=== PATIENT | male | born 1960 | race Caucasian/White ===

== ENCOUNTER 2020-09-04 16:05 | Inpatient (IN) | payer OTHER ==
[2020-09-04 16:53] LABS: BASO % 0.5 % (0-2.0); EOS % 0.3 % (0-4.5); HEMATOCRIT 37.4 % (35.4-49); HEMOGLOBIN 12.9 GM/dL (11.7-16.9); LYMPH % 36.3 % (8-40); MCH 30.9 pg (25.7-33.7); MCHC 34.5 g/dl (32.0-35.9); MEAN CELL VOLUME 89.6 fl (80-96); MEAN PLT VOLUME 8.4 fl (7.5-11.1); NEUT % 57.9 % (42.8-82.8); PLATELET COUNT 57 K/MM3 (134-434); RBC 4.17 M/mm3 (4.00-5.60); RDW 15.5 % (11.9-15.9); WHITE BLOOD COUNT 3.6 K/mm3 (4.0-10.0)
[2020-09-04 17:13] LABS: CHLORIDE 105 mmol/L (98-107); SODIUM 139 mmol/L (136-145); VENOUS BASE EXCESS -0.4 mmol/L (-2-2); VENOUS O2 SATURATION 90.3 % (70-80); VENOUS PCO2 47.2 mmHg (38-52); VENOUS PH 7.352 (7.310-7.410)
[2020-09-04 17:15] LABS: CALCIUM 8.3 mg/dL (8.5-10.1)
[2020-09-04 17:16] LABS: ALBUMIN 4.6 g/dl (3.4-5.0); ANION GAP 4 MMOL/L (8-16); BLOOD UREA NITROGEN 21.4 mg/dL (7-18); CO2 30 mmol/L (21-32); GLUCOSE,RANDOM 161 mg/dL (74-106)
[2020-09-04 17:19] LABS: SGOT/AST 25 U/L (15-37); SGPT/ALT 28 U/L (13-61)
[2020-09-04 17:21] LABS: BILIRUBIN,TOTAL 0.8 mg/dL (0.2-1); TOT PROT 8.4 g/dl (6.4-8.2)
[2020-09-04 17:22] LABS: ALK PHOS 73 U/L (45-117)
[2020-09-04] MEDS ORDERED: ONDANSETRON 4 MG/2 ML VIAL IVPUSH PRN (19:09)
[2020-09-04] MEDS ORDERED: FOLIC ACID INJECTION - 1 MG, THIAMINE HCL 100 MG, MULTIVIT INJECTION ADULT 10 ML in SOD... IVPB ONE (20:43)
[2020-09-04] MEDS ORDERED: ENOXAPARIN NA (PORCINE) 40 MG/0.4 ML DISP.SYRIN SQ ONE (20:46)
[2020-09-04] MEDS ORDERED: ENALAPRIL MALEATE 5 MG TABLET ONE (20:46)
[2020-09-04] MEDS ORDERED: PANTOPRAZOLE SODIUM 40 MG VIAL ONE (20:46)
[2020-09-04] MEDS: PANTOPRAZOLE SODIUM 40 MG VIAL IVPUSH SCH (20:57)
[2020-09-04] MEDS: ENALAPRIL MALEATE 2.5 MG TABLET PO SCH (20:57)
[2020-09-04] MEDS: ENOXAPARIN NA (PORCINE) 40 MG/0.4 ML DISP.SYRIN SQ SCH (20:57)
[2020-09-04] MEDS: SODIUM CHLORIDE 1,000 ML IV SCH (20:57)
[2020-09-04 22:03] LABS: EPI CELLS 8 /uL (0-25.1); HYALINE CASTS 3 /uL (0-3.1); PH,URINE 5.5 (5.0-8.0); URINE APPEARANCE CLEAR; URINE BACTERIA 8 /uL (0-1359); URINE BILIRUBIN NEGATIVE (NEGATIVE); URINE COLOR DK YELLOW; URINE GLUCOSE (UA) NEGATIVE (NEGATIVE); URINE KETONE TRACE (NEGATIVE); URINE LEUK ESTERASE NEGATIVE (NEGATIVE); URINE NITRITE NEGATIVE (NEGATIVE); URINE PROTEIN NEGATIVE (NEGATIVE); URINE RBC 20 /uL (0-23.9); URINE WBC 5 /uL (0-25.8)
[2020-09-04 22:08] LABS: COCAINE, UR NEGATIVE ng/ml (CUTOFF=300); OPIATES, URI NEGATIVE ng/ml (CUTOFF=300); PHENCYCLIDINE,URINE NEGATIVE ng/ml (CUTOFF=25); URINE BENZODIAZEPINES NEGATIVE ng/ml (CUTOFF=200)
[2020-09-04 22:09] LABS: URINE AMPHETAMINES NEGATIVE ng/ml (CUTOFF=500); URINE BARBITURATES NEGATIVE ng/ml (CUTOFF=200)
[2020-09-04 22:10] LABS: METHADONE, UR POSITIVE ng/ml (CUTOFF=300)
[2020-09-04] MEDS: MUPIROCIN 2% TOPICAL OINTMENT FOR DECOLONIZATION NS SCH (23:07)
[2020-09-04] MEDS: INSULIN SLIDING SCALE (NOVOLOG) 1 VIAL SQ SCH (23:07)
[2020-09-04] MEDS: CHLORHEXIDINE GLUCONATE 4% CLEANSER FOR DECOLONIZATION TP SCH (23:07)
[2020-09-04 23:47] VITALS: BMI 23.7
[2020-09-05 05:23] LABS: URINE CRYSTALS MANY /hpf
[2020-09-05 06:47] LABS: BASO % 0.4 % (0-2.0); EOS % 0.4 % (0-4.5); HEMATOCRIT 32.7 % (35.4-49); HEMOGLOBIN 11.6 GM/dL (11.7-16.9); LYMPH % 50.3 % (8-40); MCH 31.7 pg (25.7-33.7); MCHC 35.4 g/dl (32.0-35.9); MEAN CELL VOLUME 89.7 fl (80-96); MEAN PLT VOLUME 8.3 fl (7.5-11.1); MONO % 5.6 % (3.8-10.2); NEUT % 43.3 % (42.8-82.8); PLATELET COUNT 45 K/MM3 (134-434); RBC 3.65 M/mm3 (4.00-5.60); WHITE BLOOD COUNT 2.4 K/mm3 (4.0-10.0)
[2020-09-05] MEDS: INSULIN SLIDING SCALE (NOVOLOG) 1 VIAL SQ SCH ×4 (06:52→22:07)
[2020-09-05 06:58] LABS: INR 1.24 (0.83-1.09); PROTHROMBIN TIME (PATIENT) 14.9 SEC (9.7-13.0)
[2020-09-05 06:59] LABS: ACTIVATED PTT 28.4 SECONDS (25.2-36.5)
[2020-09-05 07:06] LABS: CALCIUM 7.9 mg/dL (8.5-10.1)
[2020-09-05 07:07] LABS: ALBUMIN 3.7 g/dl (3.4-5.0); BLOOD UREA NITROGEN 21.8 mg/dL (7-18); MAGNESIUM 2.1 mg/dL (1.8-2.4)
[2020-09-05 07:10] LABS: CREATININE 0.8 mg/dL (0.55-1.3); PHOSPHOROUS 3.1 mg/dL (2.5-4.9)
[2020-09-05 07:12] LABS: BILIRUBIN,TOTAL 0.5 mg/dL (0.2-1)
[2020-09-05] MEDS ORDERED: PT OWN MED DRAWER 7, Y5N ONE ×2 (08:46→10:04)
[2020-09-05] MEDS: PANTOPRAZOLE SODIUM 40 MG VIAL IVPUSH SCH (10:41)
[2020-09-05] MEDS ORDERED: methaDONE HCL 10 MG TABLET ONE (10:43)
[2020-09-05] MEDS ORDERED: methaDONE HCL 40 MG DISPERSABLE TABLET ONE (10:44)
[2020-09-05] MEDS: MUPIROCIN 2% TOPICAL OINTMENT FOR DECOLONIZATION NS SCH ×2 (10:52→22:49)
[2020-09-05] MEDS: SODIUM CHLORIDE 1,000 ML IV SCH (11:00)
[2020-09-05] MEDS: ENOXAPARIN NA (PORCINE) 40 MG/0.4 ML DISP.SYRIN SQ SCH (13:20)
[2020-09-05] MEDS: ENALAPRIL MALEATE 2.5 MG TABLET PO SCH (13:20)
[2020-09-05] MEDS: CHLORHEXIDINE GLUCONATE 4% CLEANSER FOR DECOLONIZATION TP SCH (22:49)
[2020-09-06] MEDS ORDERED: methaDONE HCL 10 MG TABLET ONE (05:35)
[2020-09-06] MEDS ORDERED: methaDONE HCL 40 MG DISPERSABLE TABLET ONE (05:36)
[2020-09-06] MEDS: INSULIN SLIDING SCALE (NOVOLOG) 1 VIAL SQ SCH ×4 (06:07→21:14)
[2020-09-06 06:32] LABS: BASO % 0.3 % (0-2.0); EOS % 0.5 % (0-4.5); HEMATOCRIT 33.3 % (35.4-49); HEMOGLOBIN 11.7 GM/dL (11.7-16.9); MCH 31.6 pg (25.7-33.7); MCHC 35.2 g/dl (32.0-35.9); MEAN PLT VOLUME 8.7 fl (7.5-11.1); MONO % 6.7 % (3.8-10.2); NEUT % 51.5 % (42.8-82.8); PLATELET COUNT 40 K/MM3 (134-434); RDW 15.5 % (11.9-15.9)
[2020-09-06] MEDS: SODIUM CHLORIDE 1,000 ML IV SCH ×3 (06:32→21:12)
[2020-09-06 06:34] LABS: WHITE BLOOD COUNT 1.8 K/mm3 (4.0-10.0)
[2020-09-06 06:49] LABS: ALBUMIN 3.7 g/dl (3.4-5.0); BLOOD UREA NITROGEN 19.7 mg/dL (7-18)
[2020-09-06 06:52] LABS: CREATININE 0.9 mg/dL (0.55-1.3)
[2020-09-06 06:54] LABS: BILIRUBIN,TOTAL 0.5 mg/dL (0.2-1); TOT PROT 7.1 g/dl (6.4-8.2)
[2020-09-06] MEDS ORDERED: ONDANSETRON 4 MG/2 ML VIAL IVPUSH PRN (07:52)
[2020-09-06] MEDS ORDERED: PT OWN MED DRAWER 7, Y5N ONE (08:48)
[2020-09-06] MEDS: ENALAPRIL MALEATE 2.5 MG TABLET PO SCH (09:17)
[2020-09-06] MEDS: ENOXAPARIN NA (PORCINE) 40 MG/0.4 ML DISP.SYRIN SQ SCH (09:17)
[2020-09-06] MEDS: PANTOPRAZOLE SODIUM 40 MG VIAL IVPUSH SCH (09:17)
[2020-09-06 09:55] LABS: ANISOCYTOSIS 0; MACROCYTOSIS 0; PLATELET ESTIMATE DECREASED
[2020-09-06] MEDS ORDERED: MUPIROCIN 2% TOPICAL OINTMENT FOR DECOLONIZATION NS SCH (10:00)
[2020-09-06] MEDS: NICOTINE 21 MG/24 HOURS TOPICAL PATCH TD SCH (16:58)
[2020-09-06] MEDS ORDERED: INSULIN (NOVOLOG) ASPART 100 UNITS/ML 10ML VIAL ONE (21:04)
[2020-09-06 21:38] LABS: HIV INTERPRETATION NEGATIVE (NEGATIVE)
[2020-09-06] MEDS ORDERED: CHLORHEXIDINE GLUCONATE 4% CLEANSER FOR DECOLONIZATION TP SCH (22:00)
[2020-09-07] MEDS ORDERED: methaDONE HCL 40 MG DISPERSABLE TABLET ONE (05:23)
[2020-09-07] MEDS ORDERED: methaDONE HCL 10 MG TABLET ONE (05:23)
[2020-09-07] MEDS: INSULIN SLIDING SCALE (NOVOLOG) 1 VIAL SQ SCH ×4 (06:05→21:50)
[2020-09-07 06:40] LABS: BASO % 0.5 % (0-2.0); EOS % 0.4 % (0-4.5); HEMATOCRIT 34.2 % (35.4-49); LYMPH % 49.9 % (8-40); MCH 31.5 pg (25.7-33.7); MCHC 35.1 g/dl (32.0-35.9); MEAN CELL VOLUME 89.6 fl (80-96); MEAN PLT VOLUME 8.3 fl (7.5-11.1); MONO % 6.3 % (3.8-10.2); NEUT % 42.9 % (42.8-82.8); PLATELET COUNT 41 K/MM3 (134-434); RBC 3.82 M/mm3 (4.00-5.60); RDW 15.6 % (11.9-15.9); WHITE BLOOD COUNT 2.5 K/mm3 (4.0-10.0)
[2020-09-07 07:04] LABS: CALCIUM 8.1 mg/dL (8.5-10.1)
[2020-09-07 07:05] LABS: ALBUMIN 3.6 g/dl (3.4-5.0); BLOOD UREA NITROGEN 17.4 mg/dL (7-18); MAGNESIUM 1.8 mg/dL (1.8-2.4)
[2020-09-07 07:08] LABS: CREATININE 0.8 mg/dL (0.55-1.3)
[2020-09-07 07:10] LABS: BILIRUBIN,TOTAL 0.5 mg/dL (0.2-1)
[2020-09-07] MEDS ORDERED: PT OWN MED DRAWER 7, Y5N ONE (08:43)
[2020-09-07] MEDS: SODIUM CHLORIDE 1,000 ML IV SCH ×2 (09:04→09:48)
[2020-09-07] MEDS: PANTOPRAZOLE SODIUM 40 MG VIAL IVPUSH SCH (09:50)
[2020-09-07] MEDS: NICOTINE 21 MG/24 HOURS TOPICAL PATCH TD SCH (09:50)
[2020-09-07] MEDS: ENALAPRIL MALEATE 2.5 MG TABLET PO SCH (09:50)
[2020-09-07] MEDS: ENOXAPARIN NA (PORCINE) 40 MG/0.4 ML DISP.SYRIN SQ SCH (09:50)
[2020-09-08] MEDS: SODIUM CHLORIDE 1,000 ML IV SCH ×3 (00:22→13:12)
[2020-09-08] MEDS ORDERED: methaDONE HCL 10 MG TABLET ONE (05:49)
[2020-09-08] MEDS ORDERED: methaDONE HCL 40 MG DISPERSABLE TABLET ONE (05:50)
[2020-09-08] MEDS: INSULIN SLIDING SCALE (NOVOLOG) 1 VIAL SQ SCH ×4 (06:15→21:32)
[2020-09-08 07:37] LABS: BASO % 0.4 % (0-2.0); EOS % 0.7 % (0-4.5); HEMATOCRIT 30.6 % (35.4-49); HEMOGLOBIN 10.9 GM/dL (11.7-16.9); LYMPH % 33.9 % (8-40); MCHC 35.5 g/dl (32.0-35.9); MEAN CELL VOLUME 89.9 fl (80-96); MEAN PLT VOLUME 8.4 fl (7.5-11.1); MONO % 7.2 % (3.8-10.2); NEUT % 57.8 % (42.8-82.8); PLATELET COUNT 39 K/MM3 (134-434); RBC 3.41 M/mm3 (4.00-5.60); RDW 15.4 % (11.9-15.9)
[2020-09-08 07:39] LABS: WHITE BLOOD COUNT 1.8 K/mm3 (4.0-10.0)
[2020-09-08] MEDS ORDERED: PT OWN MED DRAWER 7, Y5N ONE (07:44)
[2020-09-08 07:49] LABS: ALBUMIN 3.4 g/dl (3.4-5.0)
[2020-09-08 07:50] LABS: BLOOD UREA NITROGEN 17.5 mg/dL (7-18)
[2020-09-08 07:53] LABS: CREATININE 0.8 mg/dL (0.55-1.3)
[2020-09-08 07:54] LABS: BILIRUBIN,TOTAL 0.5 mg/dL (0.2-1); TOT PROT 6.8 g/dl (6.4-8.2)
[2020-09-08] MEDS: ENALAPRIL MALEATE 2.5 MG TABLET PO SCH ×2 (09:34→10:09)
[2020-09-08] MEDS: NICOTINE 21 MG/24 HOURS TOPICAL PATCH TD SCH ×2 (09:34→10:09)
[2020-09-08] MEDS: PANTOPRAZOLE SODIUM 40 MG VIAL IVPUSH SCH ×2 (09:34→10:09)
[2020-09-08] MEDS: ENOXAPARIN NA (PORCINE) 40 MG/0.4 ML DISP.SYRIN SQ SCH ×2 (09:34→10:09)
[2020-09-08] MEDS ORDERED: INSULIN (NOVOLOG) ASPART 100 UNITS/ML 10ML VIAL ONE (11:11)
[2020-09-08] MEDS: ACETAMINOPHEN 325 MG TABLET (FP) PO PRN ×2 (11:12→21:31)
[2020-09-08 11:19] LABS: PLATELET ESTIMATE DECREASED
[2020-09-09] MEDS ORDERED: methaDONE HCL 10 MG TABLET ONE (05:37)
[2020-09-09] MEDS ORDERED: methaDONE HCL 40 MG DISPERSABLE TABLET ONE (05:37)
[2020-09-09] MEDS: SODIUM CHLORIDE 1,000 ML IV SCH ×3 (05:48→18:49)
[2020-09-09] MEDS: INSULIN SLIDING SCALE (NOVOLOG) 1 VIAL SQ SCH ×4 (06:05→21:02)
[2020-09-09 08:29] LABS: BASO % 0.6 % (0-2.0); EOS % 0.6 % (0-4.5); HEMATOCRIT 34.3 % (35.4-49); HEMOGLOBIN 12.1 GM/dL (11.7-16.9); LYMPH % 41.5 % (8-40); MCH 31.7 pg (25.7-33.7); MCHC 35.2 g/dl (32.0-35.9); MEAN CELL VOLUME 90.1 fl (80-96); MONO % 5.9 % (3.8-10.2); NEUT % 51.4 % (42.8-82.8); PLATELET COUNT 43 K/MM3 (134-434); WHITE BLOOD COUNT 2.3 K/mm3 (4.0-10.0)
[2020-09-09] MEDS ORDERED: PT OWN MED DRAWER 7, Y5N ONE (10:21)
[2020-09-09] MEDS: ENOXAPARIN NA (PORCINE) 40 MG/0.4 ML DISP.SYRIN SQ SCH (10:40)
[2020-09-09] MEDS: NICOTINE 21 MG/24 HOURS TOPICAL PATCH TD SCH (10:41)
[2020-09-09] MEDS: ENALAPRIL MALEATE 2.5 MG TABLET PO SCH (10:41)
[2020-09-09] MEDS: PANTOPRAZOLE SODIUM 40 MG VIAL IVPUSH SCH (12:02)
[2020-09-09] MEDS ORDERED: INSULIN (NOVOLOG) ASPART 100 UNITS/ML 10ML VIAL ONE (20:35)
[2020-09-10] MEDS ORDERED: methaDONE HCL 10 MG TABLET ONE (05:10)
[2020-09-10] MEDS ORDERED: methaDONE HCL 40 MG DISPERSABLE TABLET ONE (05:10)
[2020-09-10] MEDS: ACETAMINOPHEN 325 MG TABLET (FP) PO PRN (05:18)
[2020-09-10] MEDS: INSULIN SLIDING SCALE (NOVOLOG) 1 VIAL SQ SCH ×4 (06:34→21:15)
[2020-09-10 08:03] LABS: BASO % 0.4 % (0-2.0); EOS % 0.6 % (0-4.5); HEMOGLOBIN 11.2 GM/dL (11.7-16.9); LYMPH % 53.4 % (8-40); MCH 31.8 pg (25.7-33.7); MCHC 35.1 g/dl (32.0-35.9); MEAN CELL VOLUME 90.6 fl (80-96); MEAN PLT VOLUME 9.1 fl (7.5-11.1); MONO % 5.5 % (3.8-10.2); NEUT % 40.1 % (42.8-82.8); PLATELET COUNT 44 K/MM3 (134-434); RBC 3.53 M/mm3 (4.00-5.60); RDW 15.8 % (11.9-15.9); WHITE BLOOD COUNT 2.5 K/mm3 (4.0-10.0)
[2020-09-10] MEDS: NICOTINE 21 MG/24 HOURS TOPICAL PATCH TD SCH (10:07)
[2020-09-10] MEDS: PANTOPRAZOLE SODIUM 40 MG VIAL IVPUSH SCH (10:07)
[2020-09-10] MEDS: ENOXAPARIN NA (PORCINE) 40 MG/0.4 ML DISP.SYRIN SQ SCH (10:07)
[2020-09-10] MEDS: ENALAPRIL MALEATE 2.5 MG TABLET PO SCH (10:13)
[2020-09-10] MEDS: ATORVASTATIN CA 10 MG TABLET (FP) PO SCH (21:08)
[2020-09-11] MEDS ORDERED: methaDONE HCL 10 MG TABLET ONE (04:50)
[2020-09-11] MEDS ORDERED: methaDONE HCL 40 MG DISPERSABLE TABLET ONE (04:51)
[2020-09-11] MEDS: INSULIN SLIDING SCALE (NOVOLOG) 1 VIAL SQ SCH ×4 (06:28→21:33)
[2020-09-11 07:08] LABS: BASO % 0.2 % (0-2.0); EOS % 0.3 % (0-4.5); HEMATOCRIT 34.4 % (35.4-49); HEMOGLOBIN 12.1 GM/dL (11.7-16.9); LYMPH % 59.3 % (8-40); MCH 31.8 pg (25.7-33.7); MCHC 35.3 g/dl (32.0-35.9); MEAN CELL VOLUME 90.1 fl (80-96); MEAN PLT VOLUME 8.2 fl (7.5-11.1); MONO % 4.2 % (3.8-10.2); PLATELET COUNT 47 K/MM3 (134-434); RBC 3.82 M/mm3 (4.00-5.60); WHITE BLOOD COUNT 3.8 K/mm3 (4.0-10.0)
[2020-09-11 07:40] LABS: CALCIUM 8.1 mg/dL (8.5-10.1)
[2020-09-11 07:41] LABS: MAGNESIUM 1.9 mg/dL (1.8-2.4)
[2020-09-11 07:42] LABS: BLOOD UREA NITROGEN 16.6 mg/dL (7-18)
[2020-09-11 07:44] LABS: CREATININE 0.8 mg/dL (0.55-1.3)
[2020-09-11] MEDS ORDERED: PT OWN MED DRAWER 7, Y5N ONE (11:44)
[2020-09-11] MEDS: PANTOPRAZOLE SODIUM 40 MG VIAL IVPUSH SCH (11:53)
[2020-09-11] MEDS: ENOXAPARIN NA (PORCINE) 40 MG/0.4 ML DISP.SYRIN SQ SCH (11:53)
[2020-09-11] MEDS: ENALAPRIL MALEATE 2.5 MG TABLET PO SCH ×2 (11:53→12:37)
[2020-09-11] MEDS: NICOTINE 21 MG/24 HOURS TOPICAL PATCH TD SCH (11:55)
[2020-09-11] MEDS: ACETAMINOPHEN 325 MG TABLET (FP) PO PRN (21:28)
[2020-09-11] MEDS: ATORVASTATIN CA 10 MG TABLET (FP) PO SCH (21:29)
[2020-09-12] MEDS ORDERED: methaDONE HCL 10 MG TABLET ONE (05:42)
[2020-09-12] MEDS ORDERED: methaDONE HCL 40 MG DISPERSABLE TABLET ONE (05:43)
[2020-09-12] MEDS: INSULIN SLIDING SCALE (NOVOLOG) 1 VIAL SQ SCH ×4 (06:01→22:31)
[2020-09-12] MEDS ORDERED: PT OWN MED DRAWER 7, Y5N ONE ×2 (09:00→18:08)
[2020-09-12] MEDS: NICOTINE 21 MG/24 HOURS TOPICAL PATCH TD SCH (09:05)
[2020-09-12] MEDS: ENOXAPARIN NA (PORCINE) 40 MG/0.4 ML DISP.SYRIN SQ SCH (09:06)
[2020-09-12] MEDS: ENALAPRIL MALEATE 2.5 MG TABLET PO SCH (09:08)
[2020-09-12] MEDS: PANTOPRAZOLE SODIUM 40 MG VIAL IVPUSH SCH (09:45)
[2020-09-12] MEDS: ACETAMINOPHEN 325 MG TABLET (FP) PO PRN (17:05)
[2020-09-12] MEDS: ATORVASTATIN CA 10 MG TABLET (FP) PO SCH (22:28)
[2020-09-13] MEDS ORDERED: methaDONE HCL 10 MG TABLET ONE (05:38)
[2020-09-13] MEDS ORDERED: methaDONE HCL 40 MG DISPERSABLE TABLET ONE (05:38)
[2020-09-13] MEDS: INSULIN SLIDING SCALE (NOVOLOG) 1 VIAL SQ SCH ×4 (06:23→21:11)
[2020-09-13] MEDS ORDERED: PT OWN MED DRAWER 7, Y5N ONE (10:38)
[2020-09-13] MEDS: NICOTINE 21 MG/24 HOURS TOPICAL PATCH TD SCH (11:00)
[2020-09-13] MEDS: ENALAPRIL MALEATE 2.5 MG TABLET PO SCH (11:00)
[2020-09-13] MEDS: ENOXAPARIN NA (PORCINE) 40 MG/0.4 ML DISP.SYRIN SQ SCH (11:00)
[2020-09-13] MEDS: PANTOPRAZOLE SODIUM 40 MG VIAL IVPUSH SCH (11:00)
[2020-09-13] MEDS: ATORVASTATIN CA 10 MG TABLET (FP) PO SCH (21:06)
[2020-09-14] MEDS ORDERED: methaDONE HCL 10 MG TABLET ONE (04:56)
[2020-09-14] MEDS ORDERED: methaDONE HCL 40 MG DISPERSABLE TABLET ONE (04:57)
[2020-09-14] MEDS: INSULIN SLIDING SCALE (NOVOLOG) 1 VIAL SQ SCH ×4 (06:05→21:41)
[2020-09-14] MEDS: ACETAMINOPHEN 325 MG TABLET (FP) PO PRN (08:23)
[2020-09-14] MEDS: ENOXAPARIN NA (PORCINE) 40 MG/0.4 ML DISP.SYRIN SQ SCH (09:20)
[2020-09-14] MEDS: PANTOPRAZOLE SODIUM 40 MG VIAL IVPUSH SCH (09:20)
[2020-09-14] MEDS: NICOTINE 21 MG/24 HOURS TOPICAL PATCH TD SCH (09:21)
[2020-09-14] MEDS: ENALAPRIL MALEATE 2.5 MG TABLET PO SCH (09:26)
[2020-09-14] MEDS: ATORVASTATIN CA 10 MG TABLET (FP) PO SCH (21:41)
[2020-09-15] MEDS ORDERED: methaDONE HCL 10 MG TABLET ONE (04:33)
[2020-09-15] MEDS ORDERED: methaDONE HCL 40 MG DISPERSABLE TABLET ONE (04:33)
[2020-09-15] MEDS: ACETAMINOPHEN 325 MG TABLET (FP) PO PRN (05:19)
[2020-09-15] MEDS: INSULIN SLIDING SCALE (NOVOLOG) 1 VIAL SQ SCH ×3 (06:09→17:02)
[2020-09-15] MEDS ORDERED: PT OWN MED DRAWER 7, Y5N ONE (09:45)
[2020-09-15] MEDS: ENOXAPARIN NA (PORCINE) 40 MG/0.4 ML DISP.SYRIN SQ SCH (09:49)
[2020-09-15] MEDS: PANTOPRAZOLE 40 MG TABLET PO SCH (09:51)
[2020-09-15] MEDS: ENALAPRIL MALEATE 2.5 MG TABLET PO SCH (09:51)
[2020-09-15] MEDS: NICOTINE 21 MG/24 HOURS TOPICAL PATCH TD SCH (09:51)
[2020-09-15] MEDS: ATORVASTATIN CA 10 MG TABLET (FP) PO SCH ×2 (21:24→21:35)
[2020-09-16] MEDS ORDERED: methaDONE HCL 40 MG DISPERSABLE TABLET ONE (04:48)
[2020-09-16] MEDS ORDERED: methaDONE HCL 10 MG TABLET ONE (04:48)
[2020-09-16 06:52] LABS: HEMATOCRIT 33.5 % (35.4-49); HEMOGLOBIN 11.6 GM/dL (11.7-16.9); MCHC 34.8 g/dl (32.0-35.9); MEAN CELL VOLUME 92.2 fl (80-96); MEAN PLT VOLUME 8.9 fl (7.5-11.1); RBC 3.63 M/mm3 (4.00-5.60); WHITE BLOOD COUNT 2.5 K/mm3 (4.0-10.0)
[2020-09-16 07:27] LABS: CALCIUM 8.4 mg/dL (8.5-10.1)
[2020-09-16 07:32] LABS: CREATININE 0.9 mg/dL (0.55-1.3)
[2020-09-16] MEDS: NICOTINE 21 MG/24 HOURS TOPICAL PATCH TD SCH (09:02)
[2020-09-16] MEDS: PANTOPRAZOLE 40 MG TABLET PO SCH (09:03)
[2020-09-16] MEDS: ENOXAPARIN NA (PORCINE) 40 MG/0.4 ML DISP.SYRIN SQ SCH (09:03)
[2020-09-16] MEDS: ENALAPRIL MALEATE 2.5 MG TABLET PO SCH (09:03)
[2020-09-16 10:37] LABS: PLATELET COUNT 39 K/MM3 (134-434)
[2020-09-16] MEDS: ATORVASTATIN CA 10 MG TABLET (FP) PO SCH (21:05)
[2020-09-17] MEDS ORDERED: methaDONE HCL 10 MG TABLET ONE (05:28)
[2020-09-17] MEDS ORDERED: methaDONE HCL 40 MG DISPERSABLE TABLET ONE (05:30)
[2020-09-17] MEDS ORDERED: PT OWN MED DRAWER 7, Y5N ONE (09:00)
[2020-09-17] MEDS: ACETAMINOPHEN 325 MG TABLET (FP) PO PRN (09:12)
[2020-09-17] MEDS: ENOXAPARIN NA (PORCINE) 40 MG/0.4 ML DISP.SYRIN SQ SCH (09:12)
[2020-09-17] MEDS: NICOTINE 21 MG/24 HOURS TOPICAL PATCH TD SCH (09:15)
[2020-09-17] MEDS: PANTOPRAZOLE 40 MG TABLET PO SCH (09:17)
[2020-09-17] MEDS: ENALAPRIL MALEATE 2.5 MG TABLET PO SCH (09:17)
[2020-09-17] MEDS ORDERED: MAG HYDROX/AL HYDROX/SIMETH 30 ML UNIT-DOSE CUP PO PRN (14:01)
[2020-09-17 20:13] VITALS: BP 150/75; PULSE 66; TEMP 98
== END 2020-09-17 20:10 | DRG 42 ==
LOC: JER 16:05 → JERBED 18:11 → JICU 21:41 → J7W 09-05 18:08
PROVIDERS: ADMIT Internal Medicine Pulmonary Disease; ATTEND Internal Medicine
PROC: HZ91ZZZ Pharmacotherapy for Substance Abuse Treatment, Methadone Maintenance (ICD-10-PCS; principal; 2020-09-04)
DX: G91.1 Obstructive hydrocephalus (principal); F17.210 Nicotine dependence, cigarettes, uncomplicated; M19.211 Secondary osteoarthritis, right shoulder; S43.081A Other subluxation of right shoulder joint, initial encounter; F16.129 Hallucinogen abuse with intoxication, unspecified; F11.20 Opioid dependence, uncomplicated; D70.4 Cyclic neutropenia; S42.201A Unspecified fracture of upper end of right humerus, initial encounter for closed fracture; D69.6 Thrombocytopenia, unspecified; X58.XXXA Exposure to other specified factors, initial encounter; Y93.9 Activity, unspecified; Y92.89 Other specified places as the place of occurrence of the external cause; Y99.9 Unspecified external cause status
CPT/HCPCS: 36415; 70450-TC; 70551-TC; 71045-TC-FY; 72125-TC; 73030-TC-RT-FY; 76705-TC; 80048; 80053; 80074; 80307; 81003; 82140; 82550; 82803; 82962; 83010; 83036; 83605; 83735; 84100; 84484; 85025; 85027; 85045; 85610; 85730; 86850; 86900; 86901; 87389; 93005; 93010; 97116-GP; 97162-GP; 99285-25; C9803; U0003; U0005